=== PATIENT | male | born 1990 | race Caucasian/White ===

== ENCOUNTER 2016-10-15 17:01 | Inpatient (IN) | payer MEDICAID, OTHER ==
[2016-10-15] VITALS (22 sets, daily range): BP systolic 104–138; BP diastolic 48–78; PULSE 96–113; RESP 12–21; O2SAT 93–100
[2016-10-15] MEDS ORDERED: ceFAZolin INJ 1,000 MG VIAL ONE (17:13)
[2016-10-15] MEDS ORDERED: HYDROmorphone HCL PF 1 MG/ML VIAL ONE ×2 (17:13→18:17)
[2016-10-15] MEDS ORDERED: ceFAZolin 2 GM PREMIX 50 ML ONE (17:13)
[2016-10-15] MEDS ORDERED: DIPHTH/TETANUS/ACEL PERTUSSIS (BOOSTER) 0.5 ML VIAL/PFS IM ONE (17:14)
[2016-10-15] MEDS ORDERED: SODIUM CHLOR 0.9% 1000 ML INJ 1,000 ML IV SCH (17:19)
[2016-10-15] MEDS ORDERED: SODIUM CHLORIDE 0.9% FLUSH 10 ML FLUSH IVF PRN (17:30)
[2016-10-15] MEDS ORDERED: TETANUS/DIPHTHERIA TOXOID ADULT 0.5 ML VIAL IM ONE (17:30)
[2016-10-15] MEDS ORDERED: HYDROmorphone HCL PF 1 MG/ML VIAL IV PUSH ONE (17:30)
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
[2016-10-15 17:31] LABS: I-STAT POTASSIUM 4.2 MMOL/L (3.5-4.9); I-STAT SODIUM 142 MMOL/L (138-146)
[2016-10-15] MEDS ORDERED: NALOXONE HCL 0.4 MG/ML AMP ONE (17:38)
[2016-10-15] MEDS ORDERED: NALOXONE HCL 2 MG/2 ML VIAL ONE (17:39)
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
[2016-10-15 17:44] LABS: APTT (PATIENT) 26.1 SEC (24.3-30.1); PROTHROMBIN TIME - PATIENT 11.3 SEC (9.8-11.6)
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
[2016-10-15] MEDS ORDERED: IOHEXOL 350 MG/ML 10 ML VIAL (for RAD DIAG) IV ONE (17:46)
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
[2016-10-15 17:48] LABS: ANION GAP 20 MEQ/L (5-15); BLOOD UREA NITROGEN 15 MG/DL (7-18); CHLORIDE 102 MEQ/L (98-107); GLOMERULAR FILTRATION RATE 25 ML/MIN (>89); POTASSIUM 4.2 MEQ/L (3.5-5.1); SODIUM (NA) 139 MEQ/L (136-145)
[2016-10-15 17:50] LABS: AUTOMATED NEUTROPHIL # 16.6 TH/MM3 (1.8-7.7); BASOPHIL # 0.1 TH/MM3 (0-0.2); BASOPHIL % 0.6 % (0.0-2.0); HEMATOCRIT 39.6 % (39.0-51.0); HEMO FLAGS DIFF FINAL; LYMPH % 5.6 % (9.0-44.0); MEAN CELL VOLUME 82.2 FL (80.0-100.0); MEAN CORPUSCULAR HEMOGLOBIN 27.2 PG (27.0-34.0); MEAN CORPUSCULAR HGB CONC 33.2 % (32.0-36.0); MONO % 5.1 % (0.0-8.0); NEUT % 88.7 % (16.0-70.0); PLATELET COUNT 315 TH/MM3 (150-450); RED BLOOD COUNT 4.83 MIL/MM3 (4.50-5.90); RED CELL DISTRIBUTION WIDTH 14.5 % (11.6-17.2); WHITE BLOOD COUNT 18.7 TH/MM3 (4.0-11.0)
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
[2016-10-15] MEDS ORDERED: MAGNESIUM HYDROXIDE SUSP 30 ML CUP PO PRN (19:00)
[2016-10-15] MEDS ORDERED: CHLORHEXIDINE GLUCONATE 2 % 1 PACK (2 CLOTHS) TOP PRN (19:00)
[2016-10-15] MEDS ORDERED: ONDANSETRON HCL 4 MG/2 ML VIAL IV PRN (19:00)
[2016-10-15] MEDS ORDERED: ENALAPRILAT 1.25 MG/ML VIAL IV PRN (19:00)
[2016-10-15] MEDS ORDERED: SODIUM CHLORIDE 0.9% FLUSH 10 ML FLUSH IV FLUSH PRN (19:00)
[2016-10-15] MEDS ORDERED: MISCELLANEOUS NURSING INFORMATION XX SCH (19:00)
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
[2016-10-15] MEDS ORDERED: GENTAMICIN 80 MG PREMIX 100 ML ONE (19:19)
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
[2016-10-15] MEDS ORDERED: LIDOCAINE 1%/EPINEPHrine 1:100,000 SOLN 20 ML VIAL ONE (19:37)
[2016-10-15] MEDS ORDERED: LIDOCAINE 1%/EPINEPHrine 1:100,000 SOLN 20 ML VIAL INFIL ONE (19:45)
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
[2016-10-15] MEDS: PANTOPRAZOLE SODIUM 40 MG VIAL IVP SCH (20:00)
[2016-10-15] MEDS: DOCUSATE SODIUM 100 MG CAP PO SCH (21:00)
[2016-10-15] MEDS: GENTAMICIN SULFATE 80 MG/2 ML VIAL IM SCH (21:00)
[2016-10-15] MEDS: HYDROmorphone HCL PF 1 MG/ML VIAL IVP PRN ×2 (21:19→23:03)
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
[2016-10-15] MEDS ORDERED: HYDROmorphone HCL PF 1 MG/ML VIAL IV ONE (21:45)
[2016-10-15] MEDS: ceFAZolin 2 GM PREMIX 50 ML IV SCH (23:00)
[2016-10-16] VITALS (12 sets, daily range): BP systolic 101–126; BP diastolic 53–60; PULSE 82–106; RESP 17–18; TEMP 97.8–98.4; O2SAT 99–100
[2016-10-16] MEDS: ACETAMINOPHEN/HYDROcodone 325 MG/5 MG TAB PO PRN ×5 (00:19→20:37)
[2016-10-16] MEDS: HYDROmorphone HCL PF 1 MG/ML VIAL IV SCH ×13 (01:08→23:46)
[2016-10-16 01:49] LABS: AMPHETAMINE, URINE NEG (NEG); BARBITURATES, URINE NEG (NEG); COCAINE, URINE POS (NEG)
[2016-10-16] MEDS: HYDROmorphone HCL PF 1 MG/ML VIAL IVP PRN ×3 (01:54→11:30)
[2016-10-16] MEDS: CHLORHEXIDINE GLUCONATE 2 % 1 PACK (2 CLOTHS) TOP SCH (03:46)
[2016-10-16] MEDS: SODIUM CHLOR 0.9% 1000 ML INJ 1,000 ML IV SCH ×3 (04:48→22:35)
[2016-10-16] MEDS: GENTAMICIN SULFATE 80 MG/2 ML VIAL IM SCH ×3 (05:00→21:41)
[2016-10-16 07:04] LABS: AUTOMATED NEUTROPHIL # 12.4 TH/MM3 (1.8-7.7); BASOPHIL # 0.1 TH/MM3 (0-0.2); BASOPHIL % 0.5 % (0.0-2.0); HEMATOCRIT 33.6 % (39.0-51.0); HEMO FLAGS DIFF FINAL; LYMPH % 6.6 % (9.0-44.0); MEAN CELL VOLUME 81.2 FL (80.0-100.0); MEAN CORPUSCULAR HGB CONC 33.3 % (32.0-36.0); MONO % 10.9 % (0.0-8.0); PLATELET COUNT 250 TH/MM3 (150-450); RED BLOOD COUNT 4.13 MIL/MM3 (4.50-5.90); RED CELL DISTRIBUTION WIDTH 14.6 % (11.6-17.2); WHITE BLOOD COUNT 15.1 TH/MM3 (4.0-11.0)
[2016-10-16] MEDS: ceFAZolin 2 GM PREMIX 50 ML IV SCH ×3 (08:34→22:34)
[2016-10-16] MEDS: DOCUSATE SODIUM 100 MG CAP PO SCH ×2 (09:00→20:37)
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
[2016-10-16 12:44] LABS: ALKALINE PHOSPHATASE 49 U/L (45-117); ALT (GPT) 51 U/L (12-78); ANION GAP 12 MEQ/L (5-15); AST (GOT) 114 U/L (15-37); BICARBONATE 22.9 MEQ/L (21.0-32.0); BLOOD UREA NITROGEN 39 MG/DL (7-18); CHLORIDE 98 MEQ/L (98-107); GLOMERULAR FILTRATION RATE 24 ML/MIN (>89); POTASSIUM 5.1 MEQ/L (3.5-5.1); SODIUM (NA) 133 MEQ/L (136-145); TOTAL BILIRUBIN ADULT 0.4 MG/DL (0.2-1.0)
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
[2016-10-16] MEDS: PANTOPRAZOLE SODIUM 40 MG VIAL IVP SCH (20:38)
[2016-10-17] VITALS (13 sets, daily range): BP systolic 114–138; BP diastolic 56–69; PULSE 76–107; RESP 12–18; TEMP 98.2–98.9; O2SAT 98–100
[2016-10-17] MEDS: HYDROmorphone HCL PF 1 MG/ML VIAL IVP PRN ×4 (00:09→11:01)
[2016-10-17] MEDS: HYDROmorphone HCL PF 1 MG/ML VIAL IV SCH ×8 (01:29→22:11)
[2016-10-17] MEDS: ACETAMINOPHEN/HYDROcodone 325 MG/5 MG TAB PO PRN ×3 (01:37→11:01)
[2016-10-17] MEDS: CHLORHEXIDINE GLUCONATE 2 % 1 PACK (2 CLOTHS) TOP SCH (03:35)
[2016-10-17 04:53] LABS: BASOPHIL % 0.4 % (0.0-2.0); EOSINOPHIL % 0.3 % (0.0-4.0); LYMPH % 12.2 % (9.0-44.0); LYMPHOCYTE # 0.8 TH/MM3 (1.0-4.8); MEAN CORPUSCULAR HEMOGLOBIN 27.8 PG (27.0-34.0); MEAN CORPUSCULAR HGB CONC 34.7 % (32.0-36.0); MONO % 14.2 % (0.0-8.0); NEUT % 72.9 % (16.0-70.0); PLATELET COUNT 188 TH/MM3 (150-450); RED BLOOD COUNT 2.25 MIL/MM3 (4.50-5.90); RED CELL DISTRIBUTION WIDTH 13.9 % (11.6-17.2); WHITE BLOOD COUNT 6.9 TH/MM3 (4.0-11.0)
[2016-10-17] MEDS: GENTAMICIN SULFATE 80 MG/2 ML VIAL IM SCH ×2 (05:07→12:27)
[2016-10-17 05:17] LABS: HEMO FLAGS DIFF FINAL
[2016-10-17 05:30] LABS: BICARBONATE 24.9 MEQ/L (21.0-32.0); CALCIUM-PROTEIN CORRECTED 7.9 MG/DL (8.5-10.1); MAGNESIUM 2.1 MG/DL (1.5-2.5); POTASSIUM 4.6 MEQ/L (3.5-5.1); TOTAL BILIRUBIN ADULT 0.3 MG/DL (0.2-1.0)
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
--- NOTE | 2016-10-17 06:29 | RADRPT ---
EXAM DATE/TIME: 10/17/2016 05:17 [facility] COMPARISON: CT THORAX W CONTRAST, October 15, 2016, 17:33. CHEST SINGLE AP, October 15, 2016, 16:54. INDICATIONS : Respiratory distress. MEDICAL HISTORY : None. SURGICAL HISTORY : None. ENCOUNTER: Subsequent ACUITY: 2 days PAIN SCORE: Non-responsive. LOCATION: Bilateral chest FINDINGS: Portable AP view of the chest demonstrates a normal-sized cardiac silhouette. No effusion, consolidat ion, or pneumothorax is visualized. Metallic densities overlie the left axillary region and left prox imal humerus fracture is visualized. CONCLUSION: No acute cardiopulmonary abnormality is identified. Andrea Holland MD on October 17, 2016 at 6:27 Board Certified Radiologist. This report was verified electronically.
[2016-10-17] MEDS: ceFAZolin 2 GM PREMIX 50 ML IV SCH ×2 (06:44→22:12)
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
[2016-10-17] MEDS: DOCUSATE SODIUM 100 MG CAP PO SCH ×2 (08:27→22:10)
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
[2016-10-17] MEDS: SODIUM CHLOR 0.9% 1000 ML INJ 1,000 ML IV SCH ×2 (10:48→22:13)
[2016-10-17] MEDS ORDERED: VECURONIUM BROMIDE 10 MG VIAL IV ONE (12:00)
[2016-10-17] MEDS ORDERED: PROPOFOL 200 MG/20 ML AMP IV ONE (12:00)
[2016-10-17] MEDS ORDERED: ePHEDrine/NS 25 MG/5 ML SYR IV ONE (12:00)
[2016-10-17] MEDS ORDERED: ONDANSETRON HCL 4 MG/2 ML VIAL IV PUSH ONE (12:00)
[2016-10-17] MEDS ORDERED: NORMOSOL R INJ 2,000 ML IV ONE (12:00)
[2016-10-17] MEDS ORDERED: LACTATED RINGER'S 1000 ML INJ 1,000 ML IV ONE (12:00)
[2016-10-17] MEDS ORDERED: PHENYLEPH/NS 1000 MCG/10 ML SYR IV ONE (12:00)
[2016-10-17] MEDS ORDERED: FAMOTIDINE 20 MG/2 ML VIAL ONE ×2 (12:40→13:04)
[2016-10-17] MEDS ORDERED: NALOXONE HCL 0.4 MG/ML AMP IV PRN (12:45)
[2016-10-17] MEDS ORDERED: HYDROmorphone HCL PCA 6 MG/30 ML IV SCH (12:45)
[2016-10-17] MEDS ORDERED: ACETAMINOPHEN 1000 MG/100 ML VIAL IV ONE (13:03)
[2016-10-17] MEDS ORDERED: fentaNYL CITRATE 250 MCG/5 ML AMP ONE (13:04)
[2016-10-17] MEDS ORDERED: MIDAZOLAM HCL 2 MG/2 ML VIAL ONE (13:04)
[2016-10-17] MEDS ORDERED: DEXAMETHASONE SOD PHOS 4 MG/ML VIAL ONE (13:04)
[2016-10-17] MEDS ORDERED: GENTAMICIN SULFATE 80 MG/2 ML VIAL ONE (13:37)
[2016-10-17] MEDS ORDERED: LIDOCAINE 1%/EPINEPHrine 1:100,000 SOLN 20 ML VIAL ONE (13:37)
[2016-10-17] MEDS ORDERED: GELFOAM SIZE 100 ONE (13:37)
[2016-10-17] MEDS ORDERED: THROMBIN (TOPICAL) 5,000 UNIT VIAL ONE (13:37)
[2016-10-17] MEDS ORDERED: PCA - TOTAL MG DILAUDID DELIVERED PER SHIFT SCH (14:00)
[2016-10-17] MEDS ORDERED: ceFAZolin INJ 1,000 MG VIAL IV ONE (15:00)
[2016-10-17] MEDS ORDERED: SUGAMMADEX SODIUM 200 MG/2 ML VIAL IV PUSH ONE ×2 (15:40)
[2016-10-17] MEDS ORDERED: HYDROmorphone HCL PF 2 MG/ML VIAL ONE ×2 (15:40→20:34)
[2016-10-17 16:43] LABS: BLOOD GAS BASE EXCESS -1.2 mmol/L (-2-2); BLOOD GAS HCO3 23 mmol/L (22-26); BLOOD GAS METHEMOGLOBIN 1.2 % (0-2); BLOOD GAS O2 HGB SATURATION 97 % (90-100); BLOOD GAS OXYGEN CONTENT 13.2 Vol % (12.0-20.0); BLOOD GAS PCO2 34 mmHg (38-42); BLOOD GAS PO2 245 mmHg (61-120); BLOOD GAS TOTAL HGB 9.3 G/DL (12.0-16.0); CRITICAL VALUE NO; FIO2 50 %; TEMP CORR TO 98.6
[2016-10-17 16:44] LABS: DRAW SITE LINE; STAT YES
--- NOTE | 2016-10-17 19:36 | RADRPT ---
EXAM DATE/TIME: 10/17/2016 17:56 [facility] COMPARISON: No previous studies available for comparison. INDICATIONS : C6-7 fusion MEDICAL HISTORY : None. SURGICAL HISTORY : None. ENCOUNTER: Initial ACUITY: 1 day PAIN SCORE: Non-responsive. LOCATION: Bilateral C-spine. FINDINGS: Fusion hardware noted at C6-7, better seen on the AP view. The cervicothoracic junction is not seen o n the lateral view. CONCLUSION: 1. Posterior fusion across C6-7. Cervicothoracic junction not clearly identified on lateral view. Panfilo Alicia MD on October 17, 2016 at 19:33 Board Certified Radiologist. This report was verified electronically.
[2016-10-17] MEDS: PANTOPRAZOLE SODIUM 40 MG VIAL IVP SCH (20:00)
[2016-10-17] MEDS ORDERED: DO NOT ADM ANY ANTICOAGULANT DRUGS PRN (20:00)
[2016-10-17] MEDS ORDERED: MORPHINE SULFATE 8 MG/ML INJ ONE (20:05)
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
[2016-10-17] MEDS ORDERED: HYDROmorphone HCL PF 1 MG/ML VIAL IV PRN (21:15)
[2016-10-18] VITALS (18 sets, daily range): BP systolic 109–137; BP diastolic 44–71; PULSE 77–99; RESP 15–21; TEMP 98.2–99.9; O2SAT 95–100
[2016-10-18] MEDS: HYDROmorphone HCL PF 1 MG/ML VIAL IV SCH ×5 (00:03→08:44)
[2016-10-18] MEDS: CHLORHEXIDINE GLUCONATE 2 % 1 PACK (2 CLOTHS) TOP SCH (02:56)
[2016-10-18] MEDS: ACETAMINOPHEN/HYDROcodone 325 MG/5 MG TAB PO PRN ×5 (04:28→21:15)
[2016-10-18 04:39] LABS: AUTOMATED NEUTROPHIL # 3.9 TH/MM3 (1.8-7.7); BASOPHIL % 0.2 % (0.0-2.0); LYMPH % 10.6 % (9.0-44.0); LYMPHOCYTE # 0.6 TH/MM3 (1.0-4.8); MEAN CELL VOLUME 80.6 FL (80.0-100.0); MEAN CORPUSCULAR HEMOGLOBIN 28.1 PG (27.0-34.0); MEAN CORPUSCULAR HGB CONC 34.9 % (32.0-36.0); MONO % 15.6 % (0.0-8.0); NEUT % 73.6 % (16.0-70.0); PLATELET COUNT 145 TH/MM3 (150-450); RED BLOOD COUNT 1.94 MIL/MM3 (4.50-5.90); RED CELL DISTRIBUTION WIDTH 13.9 % (11.6-17.2); WHITE BLOOD COUNT 5.2 TH/MM3 (4.0-11.0)
[2016-10-18 04:49] LABS: HEMATOCRIT 15.6 % (39.0-51.0); HEMO FLAGS DIFF FINAL
[2016-10-18 05:04] LABS: BICARBONATE 29.3 MEQ/L (21.0-32.0); MAGNESIUM 2.3 MG/DL (1.5-2.5); POTASSIUM 4.1 MEQ/L (3.5-5.1); TOTAL BILIRUBIN ADULT 0.3 MG/DL (0.2-1.0)
--- NOTE | 2016-10-18 05:45 | RADRPT ---
EXAM DATE/TIME: 10/18/2016 04:43 [facility] COMPARISON: CHEST SINGLE AP, October 17, 2016, 5:17. INDICATIONS : Shortness of breath. MEDICAL HISTORY : None. SURGICAL HISTORY : None. ENCOUNTER: Subsequent ACUITY: 3 days PAIN SCORE: Non-responsive. LOCATION: Bilateral chest FINDINGS: Single AP view of the chest. The lungs are clear. Cardiomediastinal silhouette within normal limits. No evidence of pleural effusion or pneumothorax. Metallic foreign bodies again seen in the left axill gilbert region. CONCLUSION: No acute cardiopulmonary disease identified. Quinn Womack MD on October 18, 2016 at 5:42 Board Certified Radiologist. This report was verified electronically.
[2016-10-18] MEDS: ceFAZolin 2 GM PREMIX 50 ML IV SCH (06:12)
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
[2016-10-18] MEDS: SODIUM CHLOR 0.9% 1000 ML INJ 1,000 ML IV SCH (08:32)
[2016-10-18] MEDS: DOCUSATE SODIUM 100 MG CAP PO SCH (08:45)
[2016-10-18] MEDS ORDERED: LACTULOSE SYRUP 20 GM/30 ML CUP PO PRN (10:00)
[2016-10-18] MEDS ORDERED: SODIUM CHLOR 0.9% 250 ML INJ 250 ML IV ONE (10:00)
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
[2016-10-18] MEDS: FAMOTIDINE 20 MG TAB PO SCH (21:15)
[2016-10-18] MEDS: DOCUSATE SODIUM 50 MG/SENNA 8.6 MG TAB PO SCH (21:15)
[2016-10-18 21:56] LABS: AUTOMATED NEUTROPHIL # 3.2 TH/MM3 (1.8-7.7); BASOPHIL % 0.2 % (0.0-2.0); EOSINOPHIL % 0.5 % (0.0-4.0); LYMPHOCYTE # 0.9 TH/MM3 (1.0-4.8); MEAN CELL VOLUME 82.7 FL (80.0-100.0); MEAN CORPUSCULAR HEMOGLOBIN 28.2 PG (27.0-34.0); MEAN CORPUSCULAR HGB CONC 34.1 % (32.0-36.0); MONO % 10.7 % (0.0-8.0); NEUT % 68.6 % (16.0-70.0); PLATELET COUNT 112 TH/MM3 (150-450); RED BLOOD COUNT 2.32 MIL/MM3 (4.50-5.90); RED CELL DISTRIBUTION WIDTH 13.9 % (11.6-17.2); WHITE BLOOD COUNT 4.6 TH/MM3 (4.0-11.0)
[2016-10-18 22:09] LABS: HEMATOCRIT 19.2 % (39.0-51.0); HEMO FLAGS AUTO DIFF
[2016-10-18 23:22] LABS: PLATELET ESTIMATE SMEAR LOW (NORMAL); SCAN/DIFF AUTO DIFF CONFIRMED
[2016-10-18 23:23] LABS: PLATELET MORPHOLOGY NORMAL (NORMAL)
[2016-10-19] VITALS (14 sets, daily range): BP systolic 118–139; BP diastolic 56–63; PULSE 67–82; RESP 18–20; TEMP 98–99.1; O2SAT 97–100
[2016-10-19] MEDS: HYDROmorphone HCL 2 MG TAB PO PRN ×3 (01:28→21:19)
[2016-10-19] MEDS: ACETAMINOPHEN/HYDROcodone 325 MG/5 MG TAB PO PRN ×5 (03:21→17:56)
[2016-10-19] MEDS: CHLORHEXIDINE GLUCONATE 2 % 1 PACK (2 CLOTHS) TOP SCH (04:00)
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
[2016-10-19] MEDS: LACTULOSE SYRUP 20 GM/30 ML CUP PO ONE ×2 (07:30→08:17)
[2016-10-19] MEDS: FAMOTIDINE 20 MG TAB PO SCH ×2 (08:17→21:19)
[2016-10-19] MEDS: DOCUSATE SODIUM 50 MG/SENNA 8.6 MG TAB PO SCH ×2 (08:17→21:19)
[2016-10-19] MEDS: GABAPENTIN 300 MG CAP PO SCH ×2 (08:18→21:19)
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
[2016-10-19 15:00] LABS: HEMATOCRIT 24.9 % (39.0-51.0); REVIEW FLAG FINAL
[2016-10-19 15:44] LABS: BICARBONATE 30.4 MEQ/L (21.0-32.0)
[2016-10-20 00:42] VITALS: BP 132/56; PULSE 68; RESP 18; TEMP 98.7; O2SAT 100
[2016-10-20] MEDS: ACETAMINOPHEN/HYDROcodone 325 MG/5 MG TAB PO PRN ×5 (01:05→21:59)
[2016-10-20] MEDS: CHLORHEXIDINE GLUCONATE 2 % 1 PACK (2 CLOTHS) TOP SCH (03:03)
[2016-10-20 04:00] VITALS: BP 115/61; PULSE 62; RESP 18; TEMP 98.4; O2SAT 99
[2016-10-20 07:34] LABS: AUTOMATED NEUTROPHIL # 4.9 TH/MM3 (1.8-7.7); BASOPHIL % 0.4 % (0.0-2.0); EOSINOPHIL # 0.1 TH/MM3 (0-0.4); EOSINOPHIL % 0.9 % (0.0-4.0); LYMPH % 17.9 % (9.0-44.0); LYMPHOCYTE # 1.2 TH/MM3 (1.0-4.8); MEAN CELL VOLUME 83.1 FL (80.0-100.0); MEAN CORPUSCULAR HEMOGLOBIN 29.4 PG (27.0-34.0); MEAN CORPUSCULAR HGB CONC 35.4 % (32.0-36.0); MONO % 9.6 % (0.0-8.0); NEUT % 71.2 % (16.0-70.0); PLATELET COUNT 170 TH/MM3 (150-450); RED BLOOD COUNT 3.25 MIL/MM3 (4.50-5.90); RED CELL DISTRIBUTION WIDTH 14.2 % (11.6-17.2); WHITE BLOOD COUNT 6.8 TH/MM3 (4.0-11.0)
[2016-10-20 07:40] LABS: HEMO FLAGS AUTO DIFF
[2016-10-20 07:56] LABS: BICARBONATE 29.1 MEQ/L (21.0-32.0)
[2016-10-20 08:00] VITALS: BP 132/63; PULSE 77; RESP 18; TEMP 98; O2SAT 98
[2016-10-20 08:35] LABS: BANDS 6 % (0-6); MYELOCYTES 3 % (0-0); PLASMA CELLS 1 % (0-0); POLYS (SEG NEUTROPHILS) 65 % (16-70); WBC DIFF SAMPLE 100
[2016-10-20 08:36] LABS: PLATELET ESTIMATE SMEAR NORMAL (NORMAL); PLATELET MORPHOLOGY NORMAL (NORMAL); SCAN/DIFF FINAL DIFF MANUAL
[2016-10-20] MEDS: LACTULOSE SYRUP 20 GM/30 ML CUP PO SCH (09:00)
[2016-10-20] MEDS: GABAPENTIN 300 MG CAP PO SCH ×2 (10:40→22:00)
[2016-10-20] MEDS: FAMOTIDINE 20 MG TAB PO SCH ×2 (10:40→22:00)
[2016-10-20] MEDS: DOCUSATE SODIUM 50 MG/SENNA 8.6 MG TAB PO SCH ×2 (10:41→22:00)
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
[2016-10-20 12:00] VITALS: BP 121/60; PULSE 63; RESP 18; TEMP 98.4; O2SAT 99
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
[2016-10-20] MEDS ORDERED: BISACODYL 10 MG SUPP RECTAL PRN (16:15)
[2016-10-20] MEDS ORDERED: MAGNESIUM CITRATE SOLN 300 ML BTL PO ONE (16:15)
[2016-10-20] MEDS: HYDROmorphone HCL 2 MG TAB PO PRN ×2 (16:32→23:31)
[2016-10-20 20:00] VITALS: BP 120/60; PULSE 64; RESP 18; TEMP 98.6; O2SAT 99
[2016-10-21] VITALS (7 sets, daily range): BP systolic 113–124; BP diastolic 54–63; PULSE 58–74; RESP 16–18; TEMP 98.2–99.4; O2SAT 98–99
[2016-10-21] MEDS: ACETAMINOPHEN/HYDROcodone 325 MG/5 MG TAB PO PRN ×5 (02:30→23:14)
[2016-10-21] MEDS: CHLORHEXIDINE GLUCONATE 2 % 1 PACK (2 CLOTHS) TOP SCH (04:00)
[2016-10-21] MEDS: HYDROmorphone HCL 2 MG TAB PO PRN ×4 (04:45→21:37)
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
[2016-10-21] MEDS: LACTULOSE SYRUP 20 GM/30 ML CUP PO SCH (09:00)
[2016-10-21] MEDS: GABAPENTIN 300 MG CAP PO SCH ×2 (09:17→21:36)
[2016-10-21] MEDS: DOCUSATE SODIUM 50 MG/SENNA 8.6 MG TAB PO SCH ×2 (09:17→21:36)
[2016-10-21] MEDS: FAMOTIDINE 20 MG TAB PO SCH ×2 (09:17→21:36)
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
[2016-10-22] VITALS: BP 136/60; PULSE 83; RESP 18; TEMP 95.2; O2SAT 99
[2016-10-22] MEDS: HYDROmorphone HCL 2 MG TAB PO PRN ×4 (01:34→17:23)
[2016-10-22 04:00] VITALS: BP 126/65; PULSE 76; RESP 16; TEMP 98.6; O2SAT 98
[2016-10-22] MEDS: CHLORHEXIDINE GLUCONATE 2 % 1 PACK (2 CLOTHS) TOP SCH (04:00)
[2016-10-22] MEDS: ACETAMINOPHEN/HYDROcodone 325 MG/5 MG TAB PO PRN ×4 (04:23→14:53)
[2016-10-22 08:11] VITALS: BP 115/59; PULSE 64; RESP 17; TEMP 98.9; O2SAT 98
[2016-10-22] MEDS: DOCUSATE SODIUM 50 MG/SENNA 8.6 MG TAB PO SCH (09:00)
[2016-10-22] MEDS: LACTULOSE SYRUP 20 GM/30 ML CUP PO SCH (09:00)
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
[2016-10-22] MEDS: FAMOTIDINE 20 MG TAB PO SCH (09:55)
[2016-10-22] MEDS: GABAPENTIN 300 MG CAP PO SCH (09:55)
[2016-10-22 10:44] LABS: HEMATOCRIT 31.8 % (39.0-51.0); REVIEW FLAG FINAL
[2016-10-22] MEDS ORDERED: ENOXAPARIN SODIUM 40 MG/0.4 ML SYRINGE SQ SCH (12:00)
[2016-10-22 12:48] VITALS: BP 124/58; PULSE 74; RESP 17; TEMP 98.4; O2SAT 98
[2016-10-22] MEDS ORDERED: NEUR300C PO (13:58)
[2016-10-22] MEDS ORDERED: ENOX40P SQ (13:58)
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
[2016-10-22 17:10] VITALS: RESP 16
[2016-10-22] MEDS ORDERED: GABAPENTIN 300 MG CAP PO SCH (18:00)
== END 2016-10-22 18:33 | DRG 958 ==
LOC: NEPI 17:01 → EEVIPCON 18:32 → EDBD 18:32 → NEDA 18:32 → NEDH 22:48 → N03B 10-16 01:15 → N05B 10-18 17:41
PROVIDERS: ADMIT Surgery; ATTEND Surgery
PROC: 0PB30ZZ Excision of Cervical Vertebra, Open Approach (ICD-10-PCS; 2016-10-17)
PROC: 00C30ZZ Extirpation of Matter from Intracranial Epidural Space, Open Approach (ICD-10-PCS; 2016-10-17)
PROC: 0JC50ZZ Extirpation of Matter from Left Neck Subcutaneous Tissue and Fascia, Open Approach (ICD-10-PCS; 2016-10-17)
PROC: 30233N1 Transfusion of Nonautologous Red Blood Cells into Peripheral Vein, Percutaneous Approach (ICD-10-PCS; 2016-10-17)
PROC: 0RG1071 Fusion of Cervical Vertebral Joint with Autologous Tissue Substitute, Posterior Approach, Posterior Column, Open Approach (ICD-10-PCS; principal; 2016-10-17 13:28)
DX: S11.84XA Puncture wound with foreign body of other specified part of neck, initial encounter (principal); S42.292B Other displaced fracture of upper end of left humerus, initial encounter for open fracture; S14.106A Unspecified injury at C6 level of cervical spinal cord, initial encounter; S12.690A Other displaced fracture of seventh cervical vertebra, initial encounter for closed fracture; G82.22 Paraplegia, incomplete; S42.352B Displaced comminuted fracture of shaft of humerus, left arm, initial encounter for open fracture; T79.7XXA Traumatic subcutaneous emphysema, initial encounter; S14.3XXA Injury of brachial plexus, initial encounter; S71.142A Puncture wound with foreign body, left thigh, initial encounter; S41.042A Puncture wound with foreign body of left shoulder, initial encounter; D64.9 Anemia, unspecified; H53.8 Other visual disturbances; H52.31 Anisometropia; M54.9 Dorsalgia, unspecified; G89.29 Other chronic pain; F14.10 Cocaine abuse, uncomplicated; F17.210 Nicotine dependence, cigarettes, uncomplicated; F11.10 Opioid abuse, uncomplicated; Y35.003A Legal intervention involving unspecified firearm discharge, suspect injured, initial encounter; Y93.89 Activity, other specified; Y92.410 Unspecified street and highway as the place of occurrence of the external cause
CPT/HCPCS: 36430; 70450; 70498; 71010; 71260; 72040; 72125; 72170; 73030; 74000; 74177; 76000; 76937; 80048; 80053; 80307; 82435; 82565; 82805; 82947; 83735; 84132; 84295; 84520; 85007; 85014; 85018; 85025; 85027; 85610; 85730; 86850; 86900; 86901; 86920; 90715; 96374; 96375; C1713; C9113; J0131; J0690; J1100; J1170; J1580; J1650; J2250; J2270; J2310; J2370; J2405; J3010; J7030; J7050; J7120; L0172; P9016; Q9967